=== PATIENT | male | born 1990 | race African-American/Black ===

== ENCOUNTER 2023-03-07 13:46 | Observation (INO) | payer BC, SELFPAY ==
[2023-03-07] MEDS ORDERED: Atropine Sulfate 1 mg/10 ml Syringe ONE ×2 (14:16→14:54)
[2023-03-07 14:39] LABS: #Eosinphils 0.1 thou/uL (0.0-0.7); #Monocytes 0.4 thou/uL (0.11-0.59); #Neutrophils 5.8 thou/uL (1.40-6.50); %Basophils 0.4 % (0.0-1.0); %Eosinophils 1.1 % (0.0-10.0); %Lymphocytes 33.5 % (21.0-51.0); %Monocytes 4.5 % (0.0-10.0); %Neutrophils 60.1 % (42.0-75.0); Hemoglobin 11.4 g/dL (14.0-18.0); Mean Corpuscular HGB CONC 29.5 g/dL (32.0-36.0); Mean Corpuscular Volume 61.1 fl (78.0-98.0); Mean Platelet Volume 10.7 fL (7.4-10.4); Platelet Count 242 10x3/uL (130-400); RBC Distribution Width 18.3 % (11.5-14.5); Red Blood Cell (RBC) Count 6.33 mill/uL (4.70-6.10); White Blood Cell (WBC) Count 9.7 10x3/uL (4.8-10.8)
[2023-03-07 15:04] LABS: Anisocytosis SLIGHT = 6-15 cells HPF (0-5); Burr Cells SLIGHT = 2-5 cells HPF (0-1); CellaVision Operator ID LAB.MJL; Hypochromia SLIGHT = 6-15 cells HPF (0-5); Microcytosis SLIGHT = 6-15 cells HPF (0-5); Ovalocytes SLIGHT = 2-5 cells HPF (0-1); Platelet Adequacy Comment Platelets Normal; Poikilocytosis SLIGHT = 6-15 cells HPF (0-5); Polychromasia SLIGHT = 2-3 cells HPF (0-2); Target Cells SLIGHT = 2-5 cells HPF (0-1); Tear Drops SLIGHT = 2-5 cells HPF (0-1)
[2023-03-07 15:14] LABS: ALT (SGPT) 26 U/L (8-55); AST (SGOT) 24 U/L (5-34); Albumin 4.7 g/dL (3.5-5.0); Alkaline Phosphatase 68 U/L (40-110); Anion Gap 10 mmol/L (10-20); BUN (Urea Nitrogen) 15 mg/dL (8.9-20.6); Bilirubin, Total 0.5 mg/dL (0.2-1.2); Calc. Creatinine Clearance 0 mL/min (70-130); Calcium 9.2 mg/dL (7.8-10.44); Carbon Dioxide 28 mmol/L (22-29); Chloride 107 mmol/L (98-107); Estimated GFR 94; Glucose 146 mg/dL (70-105); Potassium 3.4 mmol/L (3.5-5.1); Protein, Total 7.7 g/dL (6.0-8.3); Sodium 142 mmol/L (136-145)
[2023-03-07 17:25] LABS: Bacteria/HPF None Seen HPF (None Seen); Bilirubin Negative (Negative); Blood, Urine Negative (Negative); CAUTI Indications for Culture Alt mental st,lethar; Clarity Clear (Clear); Glucose, Urine (Dipstick) Normal (Negative); Ketone, Urine Negative (Negative); Leukocyte Negative Leu/uL (Negative); Nitrite Negative (Negative); Protein, Urine (Dipstick) Negative (Neg-Trace); RBC/HPF 0-3 HPF (0-3); Squamous Epithelial None Seen HPF (0-3); Urobilinogen Normal mg/dL (Less than 2); WBC/HPF 0-3 HPF (0-3); pH, Urine 6.5 (5.0-9.0)
[2023-03-07] MEDS ORDERED: Ondansetron PF 4 MG/2 ML Vial ONE (17:25)
[2023-03-07 17:27] LABS: Urine Culture Reflex No No
[2023-03-07] MEDS ORDERED: Ondansetron ODT 4 MG TAB PO PRN (19:47)
[2023-03-07 20:14] VITALS: BMI 28.0
[2023-03-07] MEDS: Lactated Ringer's 1,000 ML IV SCH (21:14)
[2023-03-07 21:52] LABS: Magnesium 1.8 mg/dL (1.6-2.6); Phosphorus 4.1 mg/dL (2.3-4.7)
[2023-03-08] MEDS: Lactated Ringer's 1,000 ML IV SCH (03:58)
[2023-03-08 05:17] LABS: Hemoglobin 10.7 g/dL (14.0-18.0); Mean Corpuscular HGB CONC 29.6 g/dL (32.0-36.0); Mean Corpuscular Hemoglobin 17.8 pg (27.0-31.0); Platelet Count 196 10x3/uL (130-400); RBC Distribution Width 17.9 % (11.5-14.5)
[2023-03-08 05:18] LABS: #Monocytes 0.7 thou/uL (0.11-0.59); #Neutrophils 6.4 thou/uL (1.40-6.50); %Basophils 0.2 % (0.0-1.0); %Eosinophils 0.2 % (0.0-10.0); %Lymphocytes 28.3 % (21.0-51.0); %Neutrophils 64.1 % (42.0-75.0); Mean Platelet Volume 10.2 fL (7.4-10.4)
[2023-03-08 05:20] LABS: Mean Corpuscular Volume 60.2 fl (78.0-98.0)
[2023-03-08 06:05] LABS: Anion Gap 11 mmol/L (10-20); BUN (Urea Nitrogen) 9 mg/dL (8.9-20.6); Calc. Creatinine Clearance 140 mL/min (70-130); Carbon Dioxide 26 mmol/L (22-29); Chloride 106 mmol/L (98-107); Potassium 3.6 mmol/L (3.5-5.1); Sodium 139 mmol/L (136-145)
[2023-03-08 06:06] LABS: Calcium 8.9 mg/dL (7.8-10.44); Estimated GFR 108; Glucose 90 mg/dL (70-105)
[2023-03-08 06:10] LABS: Transferrin, Serum 198 mg/dL (174-364)
[2023-03-08 06:11] LABS: Iron 102 ug/dL (65-175); Iron Binding Capacity, Total 248 mcg/dL (261-462)
[2023-03-08 07:53] LABS: Amphetamine Not Detected (NotDetected); Barbiturates Screen Not Detected (NotDetected); Benzodiazepine Screen Not Detected (NotDetected); Cocaine Metabolite Screen Not Detected (NotDetected); Methadone Not Detected (NotDetected); Methamphetamine Not Detected (NotDetected); Opiate Screen Not Detected (NotDetected); Oxycodone Screen Not Detected (NotDetected); Phencyclidine (PCP) Not Detected (NotDetected); THC/Cannabinoid Screen Detected (NotDetected); Tricyclic Screen Not Detected (NotDetected)
[2023-03-08 11:53] VITALS: BP 131/79; TEMP 98.2
[2023-03-12 14:14] LABS: Hemoglobin A2 4.8 % (1.8-3.2); Hemoglobin F 0.5 % (0.0-2.0); Interpretation Note: (.)
== END 2023-03-08 12:06 | disposition home or self-care (01) ==
LOC: ERS 13:46 → EEVIPCON 13:46 → 2SW 18:32
PROVIDERS: ADMIT Student in an Organized Health Care Education/Training Program; ATTEND Student in an Organized Health Care Education/Training Program
DX: T67.5XXA Heat exhaustion, unspecified, initial encounter (principal); R00.1 Bradycardia, unspecified; T68.XXXA Hypothermia, initial encounter; D64.9 Anemia, unspecified
CPT/HCPCS: 36415; 71045; 80048; 80053; 80306; 81001; 82550; 82728; 83021; 83540; 83550; 83605; 83735; 84100; 84443; 84466; 84484; 85025; 85652; 86140; 87040; 87077; 87149; 87186; 93005; 93306; 96374; 96375; 96376; G0378; J0461; J2405; J7120

== ENCOUNTER 2024-05-05 06:35 | Day surgery (SDC) | payer SELFPAY ==
[2024-05-01 14:17] VITALS: BMI 28.7
[2024-05-05] MEDS ORDERED: fentaNYL 50 mcg/mL 1 mL Vial ONE ×2 (06:49→10:05)
[2024-05-05] MEDS ORDERED: EPINEPHrine 1 MG/ML VIAL ONE ×2 (06:49→07:10)
[2024-05-05] MEDS ORDERED: Lidocaine 1% (PF) 30 ML VIAL ONE (06:50)
[2024-05-05] MEDS ORDERED: Midazolam HCl 2 mg/2 ml Vial ONE (06:50)
[2024-05-05] MEDS ORDERED: Bupivacaine PF 0.5% 30 ML VIAL ONE (06:50)
[2024-05-05] MEDS ORDERED: Bacitracin Zinc Ointment 30 gm TUBE ONE (07:10)
[2024-05-05] MEDS ORDERED: Bupivacaine 0.25% HCL 30 ML VIAL ONE (07:10)
[2024-05-05] MEDS ORDERED: CEFAZOLIN 2 GM VIAL ONE (07:20)
[2024-05-05] MEDS ORDERED: Sodium Chloride 0.9% 100 ML ONE (07:20)
[2024-05-05] MEDS ORDERED: PROPOFOL 20 ML ONE (07:23)
[2024-05-05] MEDS ORDERED: fentaNYL PF 100 MCG/2 ML SYRINGE ONE (07:23)
[2024-05-05] MEDS ORDERED: Ondansetron PF 4 MG/2 ML Vial ONE (07:24)
[2024-05-05] MEDS ORDERED: Lidocaine 1% PF 5 ML VIAL ONE (07:24)
[2024-05-05] MEDS ORDERED: Dexamethasone 4 mg/ml Vial ONE (07:24)
[2024-05-05] MEDS ORDERED: Ketorolac Tromethamine 30 MG (1 mL) VIAL ONE (08:29)
[2024-05-05] MEDS ORDERED: Meperidine HCl/PF 25 MG (1 mL) VIAL ONE (09:39)
== END 2024-05-05 12:28 | disposition home or self-care (01) ==
LOC: SDC 06:35
PROVIDERS: ATTEND Orthopaedic Surgery
PROC: 01N50ZZ Release Median Nerve, Open Approach (ICD-10-PCS; principal; 2024-05-05)
PROC: 0PSJ04Z Reposition Left Radius with Internal Fixation Device, Open Approach (ICD-10-PCS; principal; 2024-05-05)
PROC: 3E0T3BZ Introduction of Anesthetic Agent into Peripheral Nerves and Plexi, Percutaneous Approach (ICD-10-PCS; principal; 2024-05-05)
DX: S52.572A Other intraarticular fracture of lower end of left radius, initial encounter for closed fracture (principal); G56.02 Carpal tunnel syndrome, left upper limb; X58.XXXA Exposure to other specified factors, initial encounter
CPT/HCPCS: A6223; C1713; J0171; J0665; J1100; J1885; J2001; J2175; J2250; J2405; J2704; J3010